=== PATIENT | female | born 1960 | race Caucasian/White ===

== ENCOUNTER → 2017-03-25 | Outpatient (CLI) | payer MEDICARE, OTHER | END | disposition home or self-care (01) | LOC: RAD 12:06 | DX: M51.34 Other intervertebral disc degeneration, thoracic region (principal); M17.12 Unilateral primary osteoarthritis, left knee; W19.XXXA Unspecified fall, initial encounter | CPT/HCPCS: 72080; 73562 ==

== ENCOUNTER → 2017-03-31 | Outpatient (CLI) | payer MEDICARE | END | disposition home or self-care (01) | LOC: KCIC MRI 13:49 | DX: S83.242A Other tear of medial meniscus, current injury, left knee, initial encounter (principal); M17.12 Unilateral primary osteoarthritis, left knee; M22.42 Chondromalacia patellae, left knee; X58.XXXA Exposure to other specified factors, initial encounter; Y93.89 Activity, other specified; Y92.89 Other specified places as the place of occurrence of the external cause; Y99.8 Other external cause status | CPT/HCPCS: 73721 ==

== ENCOUNTER 2018-06-30 13:51 | Emergency (ER) | payer MEDICARE, OTHER ==
[~2018-06-30] VITALS: Ht 154.9 cm; Wt 65.8 kg
[~2018-06-30 13:51] MED LIST: ESOM40CA PO; LISI10TA2 PO; MELO15TA23 PO; METF500T16 PO; RANI150T2 PO; SIMV40TA3 PO; UNABLE MC
[2018-06-30 14:04] VITALS: BP 164/74
--- NOTE | 2018-06-30 14:46 | RAD ---
Indications: Twisting injury while mowing grass 2 days ago. Pain. Three-view left foot study: No acute fracture or dislocation or lytic process is evident. 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 Plantar spur of the calcaneus is seen. Periosteal reaction of the inferior aspect of the calcaneus is seen which may be due to a healing stress fracture. Three-view left ankle study: Surgical hardware is seen within the distal tibia and distal fibula and talus with complete osseous fusion of the mortise ankle joint and osseous fusion of the distal tibial fibular syndesmosis. There is an old appearing nonunited transverse fracture of the distal shaft of the fibula. No acute-appearing fracture is evident. No lytic process is evident. Dorsal degenerative spurring of the talonavicular joint is seen. IMPRESSION: No acute fracture. Nonunited nondisplaced transverse fracture of the distal shaft of the left fibula. Periosteal reaction of the inferior aspect of the calcaneus which may be seen with a healing stress fracture. Plantar spur of the calcaneus is seen. Mortise ankle joint and distal syndesmosis osseous fusion. 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 Electronically signed by: Fred Page MD (06/30/2018 2:43 PM) [facility]
[2018-06-30] MEDS ORDERED: HYDR-3164 PO (15:33)
--- NOTE | 2018-06-30 15:33 | PHYS DOC ---
Past Medical History Past Medical History: High Cholesterol, Hypertension Additional Past Medical Histor: TORN LIGAMENT IN RIGHT LEG (CHANO BAZAN APRN) Past Surgical History: Other Additional Past Surgical Histo: foot surgery (CHANO BAZAN APRN) Alcohol Use: None Drug Use: None (CHANO BAZAN APRN) Adult General Chief Complaint Chief Complaint: FOOT INJURY PAIN HPI HPI Patient is a 57 year old female with history of hypertension, high cholesterol , who presents to the ED today complaining of 7 out of 10 left lateral ankle pain radiating to the left foot that began a 2 days ago after she twisted her left ankle. Patient states the pain is worse on weight-bearing. Has not tried anything for her pain. Describes the pain as sharp and intermittent. (CHANO BAZAN APRN) Review of Systems Review of Systems Constitutional: Denies fever or chills [] Musculoskeletal: Reports left ankle pain radiating to the left foot Integument: Denies rash or skin lesions [] Neurologic: Denies headache, focal weakness or sensory changes [] All other systems were reviewed and found to be within normal limits, except as documented in this note. (CHANO BAZAN APRN) Allergies Allergies Allergies Coded Allergies Type Severity Reaction Last Updated Verified No Known Drug Allergies 02/07/15 No (LONA DOBBINS DO) Physical Exam Physical Exam Constitutional: Well developed, well nourished, no acute distress, non-toxic appearance. [] Skin: Warm, dry, no erythema, no rash. [] Back: No tenderness, no CVA tenderness. [] Extremities: Left lower extremity with no obvious deformity, soft tissue swelling noted on the left lateral ankle. Tenderness on palpation of the left lateral ankle. No navicular bone tenderness, no tenderness on the base of the fifth metatarsal left foot. Full range of motion to the left toes. +2 left pedal pulse. Cap refill less than 2 seconds the left toes. Neurologic: Alert and oriented X 3, normal motor function, normal sensory function, no focal deficits noted. [] Psychologic: Affect normal, judgement normal, mood normal. [] (CHANO BAZAN APRN) Current Patient Data Vital Signs Vital Signs Date Time Temp Pulse Resp B/P (MAP) Pulse Ox O2 Delivery O2 Flow Rate FiO2 06/30/18 14:04 98.0 98 20 164/74 (104) 98 Room Air 98.0 (LONA DOBBINS ) EKG EKG [] (CHANO BAZAN APRN) Radiology/Procedures Radiology/Procedures []PROCEDURE: ANKLE LEFT 3V Indications: Twisting injury while mowing grass 2 days ago. Pain. Three-view left foot study: No acute fracture or dislocation or lytic process is evident. 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 Plantar spur of the calcaneus is seen. Periosteal reaction of the inferior aspect of the calcaneus is seen which may be due to a healing stress fracture. Three-view left ankle study: Surgical hardware is seen within the distal tibia and distal fibula and talus with complete osseous fusion of the mortise ankle joint and osseous fusion of the distal tibial fibular syndesmosis. There is an old appearing nonunited transverse fracture of the distal shaft of the fibula. No acute-appearing fracture is evident. No lytic process is evident. Dorsal degenerative spurring of the talonavicular joint is seen. IMPRESSION: No acute fracture. Nonunited nondisplaced transverse fracture of the distal shaft of the left fibula. Periosteal reaction of the inferior aspect of the calcaneus which may be seen with a healing stress fracture. Plantar spur of the calcaneus is seen. Mortise ankle joint and distal syndesmosis osseous fusion. 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 Electronically signed by: Garrick Page MD (06/30/2018 2:43 PM) [id number] DICTATED and SIGNED BY: GARRICK PAGE MD DATE: 06/30/18 1443 (CHANO BAZAN APRN) Course & Med Decision Making Course & Med Decision Making Pertinent Labs and Imaging studies reviewed. (See chart for details) This is a 57-year-old female patient presenting to the ED today with left ankle pain after twisting her left ankle 2 days ago. Left ankle x-rays interpreted by radiology-Nonunited nondisplaced transverse fracture of the distal shaft of the left fibula.Periosteal reaction of the inferior aspect of the calcaneus which may be seen with a healing stress fracture. Plantar spur of the calcaneus is seen. Patient was placed in a stirrup sprained and posterior leg splint by the model technician , neurovascular exam is intact. Ice elevation encouraged. Provided orthopedic doctor for follow-up, she also has her own orthopedic doctor. (CHANO BAZAN APRN) Dragon Disclaimer Dragon Disclaimer This electronic medical record was generated, in whole or in part, using a voice recognition dictation system. (CHANO BAZAN APRN) Splinting Splinting : Location: Left ankle Hand-Made Type: orthoglass Splint: Posterior OCL/stirrup Pre-Proc Neuro Vasc Exam: normal Post-Proc Neuro Vasc Exam: normal, unchanged from pre-exam (LONA DOBBINS DO) Departure Departure Impression: Primary Impression: Left fibular fracture Disposition: HOME, SELF-CARE Condition: STABLE Referrals: VIRAJ COLBERT MD (PCP) CLARI BURGESS II, MD Call his office and follow up in 1-2days Patient Instructions: Fibular Fracture, Ankle, Adult, Undisplaced, Treated with Immobilization Additional Instructions: You were evaluated in the ER and were noted to have a fibular fracture. Please contact your own orthopedic doctor or the one provided in the next 1-2 days and set up a follow-up appointment as an outpatient. Try to ice and elevate the extremity. Scripts Hydrocodone/Apap 5-325 (NORCO 5-325 TABLET) 1 Each Tablet 1 TAB PO Q6HRS, #20 TAB Prov: CHANO BAZAN APRN 06/30/18 Attending Signature Attending Signature I have reviewed the PA/SPORTS PSYCHOLOGIST's note and plan of care. I was available for consultation as needed during the patient's visit in the emergency department. I agree with the clinical impression, plan, and disposition. (LONA DOBBINS DO) Problem Qualifiers Primary Impression: Left fibular fracture Encounter type: initial encounter Fibula location: lateral malleolus Fracture type: closed Fracture alignment: nondisplaced Qualified Codes: S82.65XA - Nondisplaced fracture of lateral malleolus of left fibula, initial encounter for closed fracture CHANO BAZAN APRN Jun 30, 2018 15:33 LONA DOBBINS DO Jul 01, 2018 00:31
== END 2018-06-30 15:59 | disposition home or self-care (01) ==
LOC: ER 13:51
DX: S82.65XA Nondisplaced fracture of lateral malleolus of left fibula, initial encounter for closed fracture (principal); E78.00 Pure hypercholesterolemia, unspecified; I10 Essential (primary) hypertension; X50.1XXA Overexertion from prolonged static or awkward postures, initial encounter; Y93.89 Activity, other specified; Y92.89 Other specified places as the place of occurrence of the external cause; Y99.8 Other external cause status
CPT/HCPCS: 29125; 29515; 73610; 73630; 99284

== ENCOUNTER 2020-06-04 18:35 | Emergency (ER) | payer OTHER ==
[~2020-06-04] VITALS: Ht 154.9 cm; Wt 68.1 kg
[~2020-06-04 18:35] MED LIST changes: +HYDR-3164 PO; +LISI10TA16 PO; -LISI10TA2 PO; +SIMV40TA18 PO; -SIMV40TA3 PO
--- NOTE | 2020-06-04 21:51 | RAD ---
INDICATION: Reason: left shoulder pain after lifting heavy object / Spl. Instructions: / History: COMPARISON: None. IMPRESSION: Left shoulder: 3 views obtained. There is some osseous resorption of the left distal clavicle. Degene rative changes are identified with subchondral sclerosis and lucency at the superior lateral aspect o f the left humeral head. Alternative causes such as avascular necrosis not excluded given this findin g. No evidence of acute fracture or dislocation. Electronically signed by: Dennis Lazaro MD (06/04/2020 9:49 PM) [id number]
--- NOTE | 2020-06-04 22:28 | PHYS DOC ---
Past Medical History Past Medical History: High Cholesterol, Hypertension Additional Past Medical Histor: TORN LIGAMENT IN RIGHT LEG Past Surgical History: Other Additional Past Surgical Histo: foot surgery, Arthroscopic Rotator Cuff Repair January 2020 Smoking Status: Never Smoker Alcohol Use: None Drug Use: None General Adult EDM: Chief Complaint: SHOUDLER HPI: HPI: Patient is a 59 year old female presenting with Left shoulder pain of 2 weeks duration. Pain is throbbing in nature and gradually worsening over last 2 weeks. Patient has been cleaning her home more than usual and doing heavy lifting. No injury that she remembers. Pain is worse with motion. Severity 10/10. Has tried ibuprofen and tylenol with no relief. Patient is not able to sleep due to pain. Has tried heat which only relieves symptoms temporarily. Had Arthroscopic rotator cuff repair of Left shoulder in January [address] Odom at [facility]. Review of Systems: Review of Systems: Constitutional: Denies fever or chills Eyes: Denies redness or eye pain HENT: Denies nasal congestion or sore throat Respiratory: Denies cough or shortness of breath Cardiovascular: Denies chest pain or palpitations GI: Denies abdominal pain, nausea, or vomiting : Denies dysuria or hematuria Musculoskeletal: Denies back pain. Has joint pain in left shoulder. Integument: Denies rash or skin lesions Neurologic: Denies headache, focal weakness or sensory changes Complete systems were reviewed and found to be within normal limits, except as documented in this note. Heart Score: C/O Chest Pain: N/A Family History: Family History: Patient had no pertinent family history. Allergies: Allergies: Allergies Coded Allergies Type Severity Reaction Last Updated Verified No Known Drug Allergies 02/07/15 No Physical Exam: PE: Constitutional: Well developed, well nourished, no acute distress, non-toxic appearance HENT: Normocephalic, atraumatic Eyes: PERRL, EOMI, conjunctiva normal, no discharge Neck: Normal range of motion, no tenderness, supple Lungs & Thorax: No respiratory distress, equal chest rise and fall Abdomen: Soft, no tenderness Skin: Warm, dry, no erythema, no rash Back: No tenderness, no CVA tenderness Extremities: Left shoulder tender to palpation. Pain with active motion of Left shoulder. No gross abnormality of LUE. Neurologic: Alert and oriented X 3, normal motor function, normal sensory function, no focal deficits noted Psychologic: Affect normal, judgment normal Current Patient Data: Vital Signs: Vital Signs Date Time Temp Pulse Resp B/P (MAP) Pulse Ox O2 Delivery O2 Flow Rate FiO2 06/04/20 20:00 98.2 76 18 174/94 (120) 99 Room Air 98.2 EKG: EKG: [] Radiology/Procedures: Radiology/Procedures: PROCEDURE: SHOULDER 2+V LEFT INDICATION: Reason: left shoulder pain after lifting heavy object / Spl. Instructions: / History: COMPARISON: None. IMPRESSION: Left shoulder: 3 views obtained. There is some osseous resorption of the left distal clavicle. Degenerative changes are identified with subchondral sclerosis and lucency at the superior lateral aspect of the left humeral head. Alternative causes such as avascular necrosis not excluded given this finding. No evidence of acute fracture or dislocation. Electronically signed by: Dennis Colbert MD (06/04/2020 9:49 PM) [id number] Course & Med Decision Making: Course & Med Decision Making Patient is a 59 year old female presenting with Left shoulder pain of 2 weeks duration. Patient has been cleaning her home more than usual and doing heavy lifting. No injury that she remembers. Pain is worse with motion. Severity 10/10. Has tried ibuprofen and tylenol with no relief. Patient is not able to sleep due to pain. Had Arthroscopic rotator cuff repair of Left shoulder in January [address] Odom at [facility]. XR was ordered to rule out occult fracture. Pain was addressed medically. Muscle relaxer was prescribed. Special testing consistent with Rotator cuff tendinitis/ bursitis. Patient stable for discharge with outpatient follow-up with Orthopedic surgeon. Discussed findings and plan with patient, who acknowledges understanding and agreement. Dragon Disclaimer: Cricket Disclaimer: This electronic medical record was generated, in whole or in part, using a voice recognition dictation system. Departure Departure Impression: Primary Impression: Left shoulder pain Qualified Codes: M25.512 - Pain in left shoulder Disposition: 01 DC HOME SELF CARE/HOMELESS Condition: STABLE Referrals: VIRAJ COLBERT MD (PCP) ANNA PURCELL MD Patient Instructions: Shoulder Pain, [id number] Additional Instructions: May also call your prior orthopedic surgeon (Dr. Odom) for an appointment for further evaluation and treatment. Scripts Orphenadrine Citrate (ORPHENADRINE CITRATE) 100 Mg Tablet.er 100 MG PO BID PRN for MUSCLE PAIN, #14 TAB Prov: LONA DOBBINS DO 06/04/20 LONA DOBBINS DO Jun 04, 2020 22:27
[2020-06-04] MEDS ORDERED: ORPH100T PO (22:40)
[2020-06-04 23:24] VITALS: BP 126/78
== END 2020-06-04 22:00 | disposition home or self-care (01) ==
LOC: ER 18:35
DX: M25.512 Pain in left shoulder (principal); E78.00 Pure hypercholesterolemia, unspecified; I10 Essential (primary) hypertension; Z98.890 Other specified postprocedural states
CPT/HCPCS: 73030; 99283

== ENCOUNTER 2020-06-30 16:25 | Emergency (ER) | payer OTHER ==
[~2020-06-30] VITALS: Ht 154.9 cm; Wt 75.0 kg
[~2020-06-30 16:25] MED LIST changes: +ORPH100T PO
[2020-06-30] MEDS ORDERED: LIDOCAINE 2% Multi-Dose 20 ML VIAL. IJ ONE (18:30)
[2020-06-30 19:55] VITALS: BP 166/90
--- NOTE | 2020-06-30 21:16 | PHYS DOC ---
Past Medical History Past Medical History: High Cholesterol, Hypertension Additional Past Medical Histor: TORN LIGAMENT IN RIGHT LEG Past Surgical History: Other Additional Past Surgical Histo: foot surgery, Arthroscopic Rotator Cuff Repair January 2020 Smoking Status: Never Smoker Alcohol Use: None Drug Use: None Adult General Chief Complaint Chief Complaint: LACERATION/AVULSION HPI HPI Patient is a 59 year old female presenting the emergency department for right finger laceration abrasion. Patient states that she was using electric saw when she actually slipped cutting her hand he caught into the cell. Noted laceration to the distal tip of the right index finger and the volar surface of the mid middle finger. Denies any pain in the area. Denies any additional injury. Review of Systems Review of Systems Constitutional: Denies fever or chills [] Eyes: Denies change in visual acuity, redness, or eye pain [] HENT: Denies nasal congestion or sore throat [] Respiratory: Denies cough or shortness of breath [] Cardiovascular: No additional information not addressed in HPI [] GI: Denies abdominal pain, nausea, vomiting, bloody stools or diarrhea [] : Denies dysuria or hematuria [] Musculoskeletal: Denies back pain or joint pain [] Integument: Denies rash or skin lesions [] Neurologic: Denies headache, focal weakness or sensory changes [] Endocrine: Denies polyuria or polydipsia [] All other systems were reviewed and found to be within normal limits, except as documented in this note. Current Medications Current Medications Current Medications Medications (Trade) Dose Ordered Sig/[facility] Start Time Stop Time Status Last Admin Dose Admin Lidocaine HCl (Lidocaine 2% 20ml Vial) 20 ml 1X ONCE 06/30/20 18:30 06/30/20 18:31 DC Allergies Allergies Allergies Coded Allergies Type Severity Reaction Last Updated Verified No Known Drug Allergies 02/07/15 No Physical Exam Physical Exam Constitutional: Well developed, well nourished, no acute distress, non-toxic appearance. [] HENT: Normocephalic, atraumatic, bilateral external ears normal, oropharynx moist, no oral exudates, nose normal. [] Eyes: PERRLA, EOMI, conjunctiva normal, no discharge. [] Neck: Normal range of motion, no tenderness, supple, no stridor. [] Cardiovascular:Heart rate regular rhythm, no murmur [] Lungs & Thorax: Bilateral breath sounds clear to auscultation [] Abdomen: Bowel sounds normal, soft, no tenderness, no masses, no pulsatile masses. [] Skin: Warm, dry, no erythema, no rash. [] Back: No tenderness, no CVA tenderness. [] Extremities: No tenderness, no cyanosis, no clubbing, ROM intact, no edema. Complete abrasion removal of the distal portion of the right index finger tiny superficial laceration on the volar surface of the right middle finger Neurologic: Alert and oriented X 3, normal motor function, normal sensory function, no focal deficits noted. [] Psychologic: Affect normal, judgement normal, mood normal. [] Current Patient Data Vital Signs Vital Signs Date Time Temp Pulse Resp B/P (MAP) Pulse Ox O2 Delivery O2 Flow Rate FiO2 06/30/20 19:55 98.1 75 13 166/90 (115) 99 Room Air 98.1 EKG EKG [] Radiology/Procedures Radiology/Procedures [] Course & Med Decision Making Course & Med Decision Making Pertinent Labs and Imaging studies reviewed. (See chart for details) 5-year-old female presented emergency department 2 small lacerations will not amenable to suture repair. Will clean up and provide dressings and plan for discharge Dragon Disclaimer Dragon Disclaimer This electronic medical record was generated, in whole or in part, using a voice recognition dictation system. Departure Departure Impression: Primary Impression: Laceration of right index finger Disposition: 01 HOME / SELF CARE / HOMELESS Condition: GOOD Referrals: VIRAJ COLBERT MD (PCP) Patient Instructions: Abrasions, Laceration Care, Adult Additional Instructions: EMERGENCY DEPARTMENT GENERAL DISCHARGE INSTRUCTIONS Thank you for coming to [facility] Emergency Department (ED) today and trusting us with you care. We trust that you had a positive experience in our Emergency Department. If you wish to speak to the department management, you may call the Director at [phone]. YOUR FOLLOW UP INSTRUCTIONS ARE FOLLOWS: 1. Do you have a private Doctor? If you do not have a private doctor, please ask for a resource list of physicians or clinics that may be able to assist you with follow up care. 2. The Emergency Physicain has interpreted your x-rays. The X-Ray specialist will also review them. If there is a change in the findings, you will be notified in 48 hours when at all possible. 3. A lab test or culture has been done, your results will be reviewed and you will be notified if you need a change in treatment. ADDITIONAL INSTRUCTIONS AND INFORMATION: 1. Your care today has been supervised by a physician who is specially trained in emergency care. Many problems require more than one evaluation for a complete diagnosis and treatment. We recommend that you schedule your follow up appointment as recommended to ensure complete treatment of you illness or injury. If you are unable to obtain follow up care and continue to have a problem, or if your condition worsens, we recommend that you return to the ED. 2. We are not able to safely determine your condition over the phone nor are we able to give sound medical advice over the phone. For these safety reasons, if you call for medical advice we will ask you to come to the ED for further evaluation. 3. If you have any questions regarding these discharge instructions please call the ED at [phone]. SAFETY INFORMATION: In the interest of safety, wellness, and injury prevention; we encourage you to wear your sealbelt, if you smoke; quite smoking, and we encourage family to use a protective helmet for bicycling and other sporting events that present an increased risk for head injury. IF YOUR SYMPTOMS WORSEN OR NEW SYMPTOMS DEVELOP, OR YOU HAVE CONCERNS ABOUT YOUR CONDITION; OR IF YOUR CONDITION WORSENS WHILE YOU ARE WAITING FOR YOUR FOLLOW UP APPOINTMENT; EITHER CONTACT YOUR PRIMARY CARE DOCTOR, THE PHYSICIAN WHOSE NAME AND NUMBER YOU WERE GIVEN, OR RETURN TO THE ED IMMEDIATELY. MARIALUISA DESIR MD Jun 30, 2020 21:16
== END 2020-06-30 21:24 | disposition home or self-care (01) ==
LOC: ER 16:25
DX: S61.210A Laceration without foreign body of right index finger without damage to nail, initial encounter (principal); E78.00 Pure hypercholesterolemia, unspecified; I10 Essential (primary) hypertension; Z98.890 Other specified postprocedural states; W26.8XXA Contact with other sharp object(s), not elsewhere classified, initial encounter; Y93.89 Activity, other specified; Y92.89 Other specified places as the place of occurrence of the external cause; Y99.8 Other external cause status
CPT/HCPCS: 99281

== ENCOUNTER 2020-08-18 19:54 | Emergency (ER) | payer OTHER ==
[~2020-08-18] VITALS: Ht 154.9 cm; Wt 66.0 kg
--- NOTE | 2020-08-18 21:03 | RAD ---
EXAM: Left foot, 3 views. HISTORY: Pain. COMPARISON: 06/30/2018 FINDINGS: 3 views of the left foot are obtained. There is internal fixation of the distal tibia and f ibula, not formally assessed on this exam. There is first metatarsal phalangeal joint space narrowing and spurring. There is also spurring involving the base of the third proximal phalanx. There is a sm all plantar spur. There is talonavicular joint space narrowing and spurring. There is bone deminerali zation. IMPRESSION: 1. Internal fixation of chronic ankle fractures, not formally assessed on this exam. 2. 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 3. Small plantar spur. Electronically signed by: Edita Villegas MD (08/18/2020 9:01 PM) [facility]
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
[2020-08-18 21:37] VITALS: BP 164/78
== END 2020-08-18 21:37 | disposition home or self-care (01) ==
LOC: ER 19:54
DX: M77.8 Other enthesopathies, not elsewhere classified (principal); M19.072 Primary osteoarthritis, left ankle and foot; E78.00 Pure hypercholesterolemia, unspecified; I10 Essential (primary) hypertension
CPT/HCPCS: 73630; 99283; 99285

== ENCOUNTER → 2020-08-29 | Outpatient (CLI) | payer OTHER ==
[2020-08-18 21:37] VITALS: BP 164/78
--- NOTE | 2020-08-29 15:07 | RAD ---
PROCEDURE: MG 2D BILAT SCREENING HISTORY: The patient is 59 years old and is seen for Reason: SCREENING MAMMOGRAM / Spl. Instructions: / History: . COMPARISON: October 06, 2014 TECHNIQUE: CC and MLO views of both breasts were obtained. Images were processed by the [employer] computer-aided detection system. DENSITY: There are scattered fibroglandular densities. FINDINGS: Right malar: Biopsy marker within the right upper outer breast. Previously seen right posterior breas t mass has resolved compared to prior. No suspicious microcalcifications, mass or architectural disto rtion. Left minimal: Left upper outer biopsy marker noted. No suspicious microcalcification, mass or archite ctural distortion. IMPRESSION: Negative. No evidence of malignancy. Recommend annual screening mammograms per [place] [employer] guidelines. She will be due in one year. BI-RADS category 1 Negative Patient entered into a reminder system for annual screening mammogram. Electronically signed by: Hong Lamar DO (08/29/2020 3:04 PM) [id number]
== END ==
LOC: MAMMO 11:14
PROVIDERS: ATTEND Family Medicine
DX: Z12.31 Encounter for screening mammogram for malignant neoplasm of breast (principal)
CPT/HCPCS: 77067

== ENCOUNTER 2021-02-01 19:51 | Emergency (ER) | payer OTHER ==
[~2021-02-01] VITALS: Ht 154.9 cm; Wt 67.6 kg
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
[2021-02-01] MEDS ORDERED: KETOROLAC 30 MG/ML VIAL. IM ONE (21:30)
[2021-02-01] MEDS ORDERED: HYDR-2761 PO (23:04)
--- NOTE | 2021-02-01 23:22 | RAD ---
EXAMINATION: Chest radiograph. VIEWS: Frontal and lateral views of the chest COMPARISON: Available at the time of dictation. INDICATION:60 years, Female, fall. FINDINGS: Normal cardiomediastinal silhouette. Tortuous atherosclerotic thoracic aorta. No focal consolidation. No pleural effusion or pneumothorax. No acute osseous process. IMPRESSION: No acute cardiopulmonary process. Electronically signed by: Sincere Ward DO (02/01/2021 11:19 PM) [facility]
--- NOTE | 2021-02-01 23:24 | RAD ---
EXAMINATION: Left knee radiograph. VIEWS: 3 views COMPARISON: 01/23/2018 INDICATION:60 years, Female, knee bruise. FINDINGS: No acute fracture. Marginal osteophytes within the medial and patellofemoral compartments. Normal ali gnment is preserved throughout the knee. No sizable joint effusion. Soft tissues are unremarkable. IMPRESSION: No acute osseous process. Electronically signed by: Sincere Ward DO (02/01/2021 11:21 PM) [facility]
[2021-02-01 23:25] VITALS: BP 150/73
== END 2021-02-01 23:51 | disposition home or self-care (01) ==
LOC: ER 19:51
DX: S20.02XA Contusion of left breast, initial encounter (principal); S80.02XA Contusion of left knee, initial encounter; E78.00 Pure hypercholesterolemia, unspecified; I10 Essential (primary) hypertension; W18.09XA Striking against other object with subsequent fall, initial encounter; Y93.89 Activity, other specified; Y92.89 Other specified places as the place of occurrence of the external cause; Y99.8 Other external cause status
CPT/HCPCS: 71046; 73562; 96372; 99285; J1885

== ENCOUNTER 2021-02-18 17:27 | Emergency (ER) | payer OTHER ==
[~2021-02-18] VITALS: Ht 154.9 cm; Wt 66.6 kg
[~2021-02-18 17:27] MED LIST changes: +HYDR-2761 PO
[2021-02-18 18:02] VITALS: BP 146/77
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
== END 2021-02-18 19:40 | disposition home or self-care (01) ==
LOC: ER 17:27
DX: T23.201A Burn of second degree of right hand, unspecified site, initial encounter (principal); I10 Essential (primary) hypertension; E78.00 Pure hypercholesterolemia, unspecified; Y27.2XXA Contact with hot fluids, undetermined intent, initial encounter; Y93.G3 Activity, cooking and baking; Y92.89 Other specified places as the place of occurrence of the external cause; Y99.8 Other external cause status
CPT/HCPCS: 99282